=== PATIENT | female | born 1935 | race Hispanic/Latino ===

== ENCOUNTER 2017-07-16 21:53 | Emergency (ER) | payer MEDICARE ==
[2017-07-16] MEDS ORDERED: ACETAMINOPHEN-CODEINE ELIXIR 5 ML UDCUP ONE (21:57)
== END 2017-07-16 23:24 | disposition home or self-care (01) ==
LOC: EDH 21:53
DX: S32.028A Other fracture of second lumbar vertebra, initial encounter for closed fracture (principal); S09.8XXA Other specified injuries of head, initial encounter; W18.39XA Other fall on same level, initial encounter; Y93.89 Activity, other specified; Y92.89 Other specified places as the place of occurrence of the external cause; Y99.8 Other external cause status
CPT/HCPCS: 70450; 72100; 72125; 72170

== ENCOUNTER 2018-11-14 10:11 | Observation (INO) | payer MEDICARE ==
[2018-11-14] MEDS ORDERED: ONDANSETRON HCL 4 MG/2 ML VIAL ONE (10:34)
[2018-11-14 10:51] LABS: APPEARANCE,URINE Cloudy (CLEAR); BASOPHILS % (AUTO) 0.9 % (0.0-5.0); BILIRUBIN,URINE Negative (NEGATIVE); COLOR,URINE Yellow (YELLOW); EOSINOPHILS % (AUTO) 0.8 % (0.0-8.0); GLUCOSE, URINE (UA) Negative (NEGATIVE); HEMATOCRIT 32.7 % (36-48); KETONES,URINE Negative (NEGATIVE); LEUKOCYTE ESTERASE ,URINE Negative (NEGATIVE); LYMPHOCYTES % (AUTO) 9.5 % (21.0-51.0); MEAN CORPUSCULAR HEMOGLOBIN 29.1 pg (27.0-33.0); MEAN CORPUSCULAR HGB CONC 33.4 g/dL (32.0-36.0); MEAN CORPUSCULAR VOLUME 86.9 fL (79-99); MONOCYTES % (AUTO) 8.9 % (3.0-13.0); NEUTROPHILS % (AUTO) 79.9 % (40.0-77.0); NITRATE,URINE Negative (NEGATIVE); OCCULT BLOOD,URINE Small (NEGATIVE); PH,URINE 7.5 (5.0-8.0); PLATELET COUNT (AUTO) 449 K/uL (130-400); PROTEIN,URINE POS 1+ mg/dL (NEGATIVE); RED BLOOD CELL COUNT(AUTO) 3.76 MIL/uL (4.00-5.50); RED CELL DISTRIBUTION WIDTH 14.6 % (11.0-15.5); WHITE BLOOD COUNT (AUTO) 6.6 K/uL (4.8-10.8)
[2018-11-14 11:07] LABS: ALBUMIN 3.4 g/dL (3.5-5.0); BILIRUBIN,TOTAL 0.2 mg/dL (0.2-1.0); CREATININE 0.7 mg/dL (0.5-1.5); POTASSIUM 3.5 mmol/L (3.5-5.1)
[2018-11-14 11:08] LABS: AMORPHOUS SEDIMENT,UR Few /LPF (None Seen); BACTERIA,URINE Rare /HPF (None Seen); RBC,URINE 0-1 /HPF (0-1); SQUAMOUS EPITHELIAL CELL,UR Rare /HPF (0-2); WBC,URINE 0-1 /HPF (0-1)
[2018-11-14] MEDS ORDERED: SODIUM CHLORIDE 0.9% 1000ML 1,000 ML IV ONE ×2 (11:22→13:40)
[2018-11-14] MEDS ORDERED: FAMOTIDINE/PF 20 MG/2 ML VIAL IV ONE (11:22)
[2018-11-14] MEDS ORDERED: HYDRALAZINE HCL 20 MG/ML VIAL IV PRN (12:30)
[2018-11-14] MEDS ORDERED: ACETAMINOPHEN 325 MG TAB PO PRN ×2 (12:30)
[2018-11-14] MEDS ORDERED: ONDANSETRON HCL 4 MG/2 ML VIAL IV PRN (12:30)
[2018-11-14] MEDS ORDERED: IOHEXOL-350 75 ML VIAL IV ONE (12:50)
[2018-11-14] MEDS ORDERED: HYDRALAZINE HCL 20 MG/ML VIAL ONE (13:40)
[2018-11-14 15:57] LABS: CREATININE 0.6 mg/dL (0.5-1.5); POTASSIUM 4.4 mmol/L (3.5-5.1); T4 (THYROXINE) 6.2 ug/dL (4.7-13.3); THYROID STIMULATING HORMONE 1.16 uIU/mL (0.36-3.74)
[2018-11-14 18:30] VITALS: BP 154/60
[2018-11-14] MEDS ORDERED: CA/D1TAB7 PO (18:46)
[2018-11-14] MEDS ORDERED: LISI-613 PO (18:46)
[2018-11-14] MEDS ORDERED: DOCU100C33 PO (18:46)
[2018-11-14 20:00] VITALS: BP 137/48
[2018-11-14] MEDS: SODIUM CHLORIDE 0.9% 1000ML 1,000 ML IV SCH (20:16)
[2018-11-14] MEDS: FAMOTIDINE/PF 20 MG/2 ML VIAL IV SCH (21:12)
[2018-11-14 21:45] LABS: CREATININE 0.6 mg/dL (0.5-1.5); POTASSIUM 4.2 mmol/L (3.5-5.1)
[2018-11-14 23:57] VITALS: BP 163/65
[2018-11-15 00:30] LABS: CREATININE 0.6 mg/dL (0.5-1.5); POTASSIUM 4.1 mmol/L (3.5-5.1)
[2018-11-15] MEDS: SODIUM CHLORIDE 0.9% 1000ML 1,000 ML IV SCH ×2 (00:47→10:39)
[2018-11-15 03:54] VITALS: BP 141/51
[2018-11-15 07:00] VITALS: BP 148/59
[2018-11-15] MEDS ORDERED: LISINOPRIL 20 MG TABLET PO SCH (09:00)
[2018-11-15] MEDS ORDERED: POLYETHYLENE GLYCOL 3350 17 GM POWD.PACK PO SCH (09:00)
[2018-11-15] MEDS ORDERED: DOCUSATE SODIUM 100 MG CAP PO SCH (09:00)
[2018-11-15] MEDS ORDERED: ENOXAPARIN SODIUM 40 MG/0.4 ML SYRINGE SQ SCH (09:00)
[2018-11-15] MEDS ORDERED: CALCIUM 600 + VITAMIN D 400 TABLET PO SCH (09:00)
[2018-11-15] MEDS: FAMOTIDINE/PF 20 MG/2 ML VIAL IV SCH (09:08)
[2018-11-15 11:00] VITALS: BP 148/58
[2018-11-15] MEDS ORDERED: LIDOCAINE 5% TOPICAL PATCH TP SCH (11:45)
--- NOTE | 2018-11-15 11:48 | NUR ---
DR. RICKETTS IN ROOM ASSESSING PT. DR. RICKETTS ALSO SPEAKING WITH PT. AND PT.'S FAMILY MEMBERS AT BEDSIDE RE:PLAN OF CARE. QUESTIONS ANSWERED BY DR. RICKETTS.
[2018-11-15] MEDS ORDERED: LIDOP TP (12:06)
[2018-11-15] MEDS ORDERED: LUBI24CA2 PO (12:06)
--- NOTE | 2018-11-15 12:08 | NUR ---
DC PLAN VISITED WITH PATIENT. PATIENT LIVES [facility]. PROVIDER 17 HRS, NO DME. FEELS SAFE TO RETURN HOME. Addendum: 11/15/18 at 1209 by STANLEY RANDHAWA RN CM Amended: Links added.
[2018-11-15 12:21] LABS: CREATININE 0.5 mg/dL (0.5-1.5); POTASSIUM 3.9 mmol/L (3.5-5.1)
[2018-11-15] MEDS: LUBIPROSTONE 24 MCG CAP PO SCH ×2 (12:36→16:48)
--- NOTE | 2018-11-15 12:45 | NUR ---
PT.'S DAUGHTER AT BEDSIDE STATES APPT. WITH DR. Maite GAY ( OUTPT.) HAS BEEN MISSED; WAS SCHEDULED FOR 0830 AM TODAY. Addendum: 11/15/18 at 1647 by LESLEY RODRIGUEZ RN RN PT. SITTING UP IN CHAIR AT BEDSIDE. CALL LIGHT WITHIN REACH.
--- NOTE | 2018-11-15 14:43 | NUR ---
PATIENT IS READY TO BE DC per SERGIO Neves NO SKILLED PT EVALUATION PERFORM. Addendum: 11/15/18 at 1445 by RIAZ PIMENTEL PT PT Amended: Links added.
--- NOTE | 2018-11-15 16:05 | NUR ---
HL REMOVED, CATHETER INTACT. DISCHARGE INSTRUCTIONS GIVEN TO PT. AND PT.'S SON AT BEDSIDE, VERBALIZED MUTUAL UNDERSTANDING.
== END 2018-11-15 16:45 | disposition home or self-care (01) ==
LOC: EDH 10:11 → EDHIP 12:16 → INTOOBSV 12:16 → 2DH 17:59
PROVIDERS: ADMIT Internal Medicine; ATTEND Internal Medicine
DX: E87.0 Hyperosmolality and hypernatremia (principal); K56.41 Fecal impaction; R33.9 Retention of urine, unspecified; I10 Essential (primary) hypertension; M19.90 Unspecified osteoarthritis, unspecified site; Z79.899 Other long term (current) drug therapy
CPT/HCPCS: 36415 ×2; 71045; 74177; 80048 ×2; 80053; 81001; 83690; 84300; 84436; 84443; 85025; 96361; 96372; 96374; 96376; 99291; G0378 ×28; J0360; J1650; J2405; J3490 ×3; J7030 ×4; Q9967

== ENCOUNTER → 2019-01-09 | Outpatient (CLI) | payer MEDICARE ==
[~2019-01-09] MED LIST: CA/D1TAB7 PO; DOCU100C33 PO; LIDOP TP; LISI-613 PO; LUBI24CA2 PO
== END | disposition home or self-care (01) ==
LOC: SHCH 08:05
PROVIDERS: ATTEND Internal Medicine Cardiovascular Disease
DX: I65.23 Occlusion and stenosis of bilateral carotid arteries (principal); I06.1 Rheumatic aortic insufficiency; I73.9 Peripheral vascular disease, unspecified; I70.8 Atherosclerosis of other arteries
CPT/HCPCS: 93306; 93880; 93925; 93978

== ENCOUNTER 2019-12-02 23:53 | Inpatient (IN) | payer OTHER, MEDICARE ==
[~2019-12-02] VITALS: Ht 152.4 cm; Wt 39.0 kg
[2019-12-03] MEDS ORDERED: ONDANSETRON HCL 4 MG/2 ML VIAL ONE (00:24)
[2019-12-03 00:54] LABS: BASOPHILS % (AUTO) 0.3 % (0.0-5.0); EOSINOPHILS % (AUTO) 0.1 % (0.0-8.0); HEMATOCRIT 26.3 % (36-48); LYMPHOCYTES % (AUTO) 1.9 % (21.0-51.0); MEAN CORPUSCULAR HEMOGLOBIN 25.5 pg (27.0-33.0); MEAN CORPUSCULAR HGB CONC 32.7 g/dL (32.0-36.0); MONOCYTES % (AUTO) 3.7 % (3.0-13.0); NEUTROPHILS % (AUTO) 93.4 % (40.0-77.0); PLATELET COUNT (AUTO) 518 K/uL (130-400); RED BLOOD CELL COUNT(AUTO) 3.37 MIL/uL (4.00-5.50); RED CELL DISTRIBUTION WIDTH 14.8 % (11.0-15.5); WHITE BLOOD COUNT (AUTO) 13.4 K/uL (4.8-10.8)
[2019-12-03 01:11] LABS: INR 0.99 (0.85-1.15); PROTHROMBIN TIME 10.7 SEC (9.6-11.6)
[2019-12-03 01:15] LABS: ALBUMIN 2.5 g/dL (3.5-5.0); BILIRUBIN,TOTAL 0.3 mg/dL (0.2-1.0); CREATININE 0.6 mg/dL (0.5-1.5); POTASSIUM 3.3 mmol/L (3.5-5.1)
[2019-12-03 01:16] LABS: APPEARANCE,URINE Clear (CLEAR); BILIRUBIN,URINE Negative (NEGATIVE); COLOR,URINE Yellow (YELLOW); GLUCOSE, URINE (UA) TRACE mg/dL (NEGATIVE); KETONES,URINE Trace mg/dL (NEGATIVE); LEUKOCYTE ESTERASE ,URINE Negative (NEGATIVE); NITRATE,URINE Negative (NEGATIVE); OCCULT BLOOD,URINE Negative (NEGATIVE); PROTEIN,URINE Trace mg/dL (NEGATIVE)
[2019-12-03 01:20] LABS: B-TYPE NATRIURETIC PEPTIDE 218 pg/mL (0-100)
[2019-12-03 01:22] LABS: BACTERIA,URINE None Seen /HPF (None Seen); RBC,URINE None Seen /HPF (0-1); SQUAMOUS EPITHELIAL CELL,UR Rare /HPF (0-2); WBC,URINE None Seen /HPF (0-1)
[2019-12-03] MEDS ORDERED: DiphenhydrAMINE HCL 50 MG/ML VIAL ONE (02:00)
[2019-12-03] MEDS ORDERED: SODIUM CHLORIDE 0.9% 1000ML 1,000 ML IV SCH (02:10)
[2019-12-03] MEDS ORDERED: ACETAMINOPHEN 325 MG TAB PO PRN ×2 (02:15)
[2019-12-03] MEDS ORDERED: ONDANSETRON HCL 4 MG/2 ML VIAL IV PRN (02:15)
[2019-12-03] MEDS ORDERED: ERGOCALCIFEROL (VITAMIN D2) 50,000 UNIT CAPSULE PO ONE (02:15)
[2019-12-03] MEDS ORDERED: NITROGLYCERIN 1GM/1 INCH PACKET TD PRN (02:15)
[2019-12-03] MEDS ORDERED: HYDRALAZINE HCL 20 MG/ML VIAL IV PRN (02:15)
[2019-12-03] MEDS ORDERED: METOCLOPRAMIDE 10 MG/2 ML VIAL IVP PRN (02:15)
[2019-12-03] MEDS ORDERED: ALPRAZOLAM 0.25 MG TABLET PO PRN (02:30)
[2019-12-03] MEDS ORDERED: IOHEXOL-350 50ML VIAL IV ONE (02:31)
[2019-12-03] MEDS ORDERED: IOHEXOL 350 MG/ML 100ML INFUS..BTL IV ONE (02:31)
[2019-12-03] MEDS ORDERED: METOCLOPRAMIDE 10 MG/2 ML VIAL ONE ×2 (02:33→07:45)
[2019-12-03] MEDS ORDERED: HYDRALAZINE HCL 20 MG/ML VIAL ONE (02:34)
[2019-12-03] MEDS ORDERED: ERGOCALCIFEROL (VITAMIN D2) 50,000 UNIT CAPSULE ONE ×2 (02:34→07:45)
[2019-12-03] MEDS ORDERED: NS-20 MEQ KCL 1000ML 1,000 ML IV SCH (03:15)
[2019-12-03] MEDS ORDERED: NS-20 MEQ KCL 1000ML 1,000 ML IV ONE ×2 (03:43→07:46)
[2019-12-03] MEDS ORDERED: METHYLPREDNISOLONE SOD SUCC 40MG/ML 1ML IVP SCH (06:00)
[2019-12-03] MEDS ORDERED: METHYLPREDNISOLONE SOD SUCC 40MG/ML 1ML ONE (07:44)
[2019-12-03] MEDS ORDERED: ASCORBIC ACID 500 MG TAB ONE (07:45)
[2019-12-03] MEDS ORDERED: ACETYLCYSTEINE 600 MG CAPSULE ONE (07:46)
[2019-12-03] MEDS ORDERED: ENOXAPARIN SODIUM 30 MG/0.3 ML SQ ONE (07:46)
[2019-12-03] MEDS ORDERED: ZINC SULFATE 220 CAPSULE ONE (07:46)
[2019-12-03] MEDS ORDERED: FAMOTIDINE/PF 20 MG/2 ML VIAL IV ONE (07:47)
[2019-12-03] MEDS ORDERED: AZITHROMYCIN 500MG+NS 250ML 250 ML IV SCH (08:45)
[2019-12-03] MEDS ORDERED: CEFTRIAXONE SODIUM 1 GM IVP SCH (08:45)
[2019-12-03] MEDS ORDERED: FAMOTIDINE/PF 20 MG/2 ML VIAL IV SCH (09:00)
[2019-12-03] MEDS ORDERED: ASCORBIC ACID 500 MG TAB PO SCH (09:00)
[2019-12-03] MEDS ORDERED: ACETYLCYSTEINE 600 MG CAPSULE PO SCH (09:00)
[2019-12-03] MEDS ORDERED: ZINC SULFATE 220 CAPSULE PO SCH (09:00)
[2019-12-03] MEDS ORDERED: ENOXAPARIN SODIUM 30 MG/0.3 ML SQ SCH (09:00)
[2019-12-03] MEDS ORDERED: AZITHROMYCIN 500MG+NS 250ML 250 ML IV ONE (10:02)
[2019-12-03] MEDS ORDERED: CEFTRIAXONE SODIUM 1 GM ONE (10:02)
[2019-12-03 10:47] LABS: CREATININE 0.5 mg/dL (0.5-1.5); MAGNESIUM 1.6 mg/dL (1.80-2.40)
[2019-12-03] MEDS ORDERED: MAGNESIUM 2GM PREMIX 50ML 50 ML IV SCH (11:00)
[2019-12-03 11:05] LABS: CRP QUANTITATIVE 151.2 mg/L (0.00-9.0)
[2019-12-03 12:44] LABS: CREATININE,URINE RANDOM 18 mg/dL (30-135); SODIUM,URINE RANDOM 130 mmol/l (40-220)
== END 2019-12-03 13:10 | disposition left against medical advice (07) | DRG 179 ==
LOC: EDH 23:53 → EDHIP 12-03 02:10
PROVIDERS: ADMIT Internal Medicine; ATTEND Internal Medicine
DX: U07.1 COVID-19 (principal); K21.9 Gastro-esophageal reflux disease without esophagitis; I10 Essential (primary) hypertension; M19.90 Unspecified osteoarthritis, unspecified site; I16.0 Hypertensive urgency; E87.6 Hypokalemia
CPT/HCPCS: 36415; 70450; 71045; 71275; 74177; 80048; 80053; 81001; 82550; 82570; 82728; 83605; 83615; 83690; 83735; 83880; 83930; 83935; 84145; 84300; 84443; 84484; 85025; 85378; 85610; 85730; 86140; 87040; 87426; 87804; 93005; G0378; J0360; J0456; J0696; J1200; J1650; J2405; J2765; J2920; J3480; J3490; Q9967